=== PATIENT | male | born 1995 | race Caucasian/White ===

== ENCOUNTER 2019-01-05 11:17 | Day surgery (SDC) | payer OTHER, MEDICAID ==
[~2019-01-05 11:17] MED LIST: CEFAZOLIN 1 GM INJ; DEXAMETHASONE 4 MG/ML 5 ML INJ; FENTAnyl 50 MCG/ML VIAL; GLYCOPYRROLATE 0.4 MG INJ; MIDAZOLAM 1 MG/ML 2 ML INJ; NEOSTIGMINE 3 MG/3 ML SYRINGE; ONDANSETRON 4 MG INJ; PROPOFOL 20 ML; ROCURONIUM 50 MG INJ; ROPIVACAINE 0.5 % 30 ML VIAL
[2019-01-05] MEDS ORDERED: SUGAMMADEX SODIUM 200 MG/2 ML VIAL IV ×2 (12:13→14:57)
[2019-01-05] MEDS ORDERED: ROPIVACAINE 0.5 % 30 ML VIAL (12:14)
[2019-01-05] MEDS: LACTATED RINGER'S 1,000 ML IV ×2 (12:19→18:46)
[2019-01-05] MEDS ORDERED: NEOMYC/POLYMYX/BACIT 30 GM OINT (12:58)
[2019-01-05] MEDS ORDERED: FENTAnyl 50 MCG/ML VIAL (15:21)
[2019-01-05] MEDS ORDERED: THROMBIN(HUM PLAS)/FIBRINOG/CA 5 ML VIAL TOP (15:23)
[2019-01-05] MEDS: ROPIVACAINE 0.5 % 30 ML VIAL (16:00)
[2019-01-05] MEDS: SODIUM CL BACTERIOSTATIC 30 ML INJ (16:00)
[2019-01-05] MEDS: HEPARIN 1000 UNITS/ML 10 ML INJ (16:00)
[2019-01-05] MEDS: POLYMYXIN/BACITRACIN 1L IRRIG (16:00)
[2019-01-05] MEDS: IOHEXOL 300MG/ML 30 ML BTL (16:00)
[2019-01-05] MEDS ORDERED: hydrALAzine 20 MG INJ IV (18:30)
[2019-01-05] MEDS ORDERED: HYDROmorphONE 1 MG/5 ML IV SYRINGE IV (18:30)
[2019-01-05] MEDS ORDERED: MEPERIDINE 25 MG INJ IV (18:30)
[2019-01-05] MEDS ORDERED: FENTAnyl 50 MCG/ML VIAL IV ×2 (18:30)
[2019-01-05] MEDS ORDERED: LABETALOL HCL 20MG INJ IV (18:30)
[2019-01-05] MEDS ORDERED: METOCLOPRAMIDE 10 MG INJ IV (18:30)
[2019-01-05] MEDS: ONDANSETRON 4 MG INJ IV ×2 (18:46→20:07)
[2019-01-05] MEDS: HYDROmorphONE 1 MG/5 ML IV SYRINGE IV ×2 (18:46→19:31)
[2019-01-05] MEDS ORDERED: morphine 2 MG INJ IV (19:00)
== END 2019-01-05 20:30 | disposition home or self-care (01) ==
LOC: SDS 11:17
DX: M25.372 Other instability, left ankle (principal); M94.8X7 Other specified disorders of cartilage, ankle and foot
CPT/HCPCS: 29891; 73610; 82306